=== PATIENT | female | born 1965 | race Caucasian/White ===

== ENCOUNTER → 2018-03-15 12:59 | Outpatient (REF) | payer SELFPAY | LOC: OM 12:59 | PROVIDERS: PCP Nurse Practitioner; Visit Provider Nurse Practitioner Family | DX: Z02.79 Encounter for issue of other medical certificate (principal) ==

== ENCOUNTER → 2018-03-24 11:50 | Outpatient (REF) | payer BC, SELFPAY ==
[2018-03-24 18:43] LABS: HCT 46.5 % (36.0-46.0); HGB 15.3 g/dL (12.0-15.5); Mean Corp. HGB Concentration 32.9 g/dL (32.0-36.0); Mean Corpuscular Hemoglobin 29.3 pg (27.0-33.0); Mean Corpuscular Volume 89.1 fL (80-95); Mean Platelet Volume 11.5 fL (8.0-11.0); Platelet Count 266 x1000/uL (130-400); RBC 5.22 m/cumm (4.00-5.20); White Blood Cell Count 8.16 k/cumm (4.4-10.8)
[2018-03-24 18:54] LABS: ALT 28 U/L (12-78); AST 25 U/L (15-37); Albumin 3.9 g/dL (3.4-5.0); Alkaline Phosphatase 114 U/L (46-116); Anion Gap 9.1 mmol/L (3-11); BUN 15 mg/dL (7-18); Bilirubin, Total 0.6 mg/dL (0.2-1.0); CO2 28.9 mmol/L (21.0-32.0); Calcium 9.3 mg/dL (8.5-10.1); Chloride 104 mmol/L (98-107); Glucose 88 mg/dL (70-100); Potassium 4.3 mmol/L (3.5-5.1); Sodium 142 mmol/L (136-145); TSH (W/Ref FT4) 1.39 uIU/mL (0.358-3.74); Total Protein 7.5 g/dL (6.4-8.2)
[2018-03-24 19:07] LABS: Cholesterol 186 mg/dL (50-200); HDL Cholesterol 67 mg/dL (40-60); LDL CHOLESTEROL 110 mg/dL (<100); Triglyceride 92 mg/dL (30-150)
== END ==
LOC: NCHCN 11:50
PROVIDERS: PCP Nurse Practitioner; Visit Provider Nurse Practitioner
DX: Z00.00 Encounter for general adult medical examination without abnormal findings (principal); Z13.29 Encounter for screening for other suspected endocrine disorder; Z13.0 Encounter for screening for diseases of the blood and blood-forming organs and certain disorders involving the immune mechanism; Z13.228 Encounter for screening for other metabolic disorders; Z13.220 Encounter for screening for lipoid disorders
CPT/HCPCS: 80053; 80061; 83721; 85027; 84443

== ENCOUNTER 2018-04-26 10:46 | Outpatient (REF) | payer BC, SELFPAY ==
--- NOTE | 2018-04-26 10:00 | PAPFT_PTH ---
PATIENT: Flakita Cardoso LOC: AP U#:[id number] AGE/SX: 52/F ROOM: RE04/26/[address]: Sulema Dominguez : 1965 BED: DIS: 04/26/2018 SPEC #: [id number] RECD: 04/26/18 12:58 STATUS: IRIS REEan #: [id number] ROD: 04/26/18 10:[address]: Sulema Dominguez DEPT: [facility] Cytology RECD BY: Nikki Phan ENTERED: 04/26/18 12:58 SP TYPE: PAPFT OTHR DR: Za Ricks Tissues: 1 - CX/ENDOCX FOR PAP SMEARS Procedures: PAP THIN PREP/UVM Screening HPV DNA PROBE Comments: [id number]
== END 2018-04-26 11:06 ==
LOC: LBN 10:46
PROVIDERS: PCP Nurse Practitioner; Visit Provider Obstetrics & Gynecology Gynecology
DX: Z12.4 Encounter for screening for malignant neoplasm of cervix (principal); Z11.51 Encounter for screening for human papillomavirus (HPV)
CPT/HCPCS: 88142; 87624

== ENCOUNTER 2018-05-05 01:06 | Outpatient (CLI) | payer BC, SELFPAY ==
--- NOTE | 2018-05-05 08:39 | DI.MAMMO_ITS ---
SYMPTOM/DIAGNOSIS: SCREENING, Z12.31 MAMMOGRAM: Mammograms were interpreted according to the usual protocol including computer analysis with CAD system, tomosynthesis and C view imaging. The breast tissue was of moderate radiodensity. There is no evidence of a mass. There are no suspicious calcifications and there has been no significant interval change when compared with prior images. SUMMARY: No evidence of malignancy, Category 1. Yearly screening mammography is recommended. Breast density category B. SA ASSESSMENT OF FINDINGS: Negative. Category 1. Patient will receive a letter notifying them of these results. BI-RADS category B. There are scattered areas of fibroglandular density.
== END 2018-05-05 01:26 ==
PROVIDERS: PCP Nurse Practitioner; Visit Provider Obstetrics & Gynecology Gynecology
DX: Z12.31 Encounter for screening mammogram for malignant neoplasm of breast (principal)
CPT/HCPCS: 77063; 77067

== ENCOUNTER 2018-05-19 11:51 | Day surgery (SDC) | payer BC, SELFPAY ==
[2018-05-19 12:12] VITALS: BP 131/86; PULSE 77; RESP 16; TEMP 36.4; O2SAT 97
[2018-05-19] MEDS: Lactated Ringers 1,000 ML 80 ML IV (12:30)
--- NOTE | 2018-05-19 13:12 | W.COLOREPORT ---
Date of service: 05/19/18 Colonoscopy Report Date of procedure: 05/19/18 Pre-op diagnosis general: screening Post-op diagnosis procedure note: same Procedure: Colonoscopy Surgeon: Suzie Altamirano Anesthesia proc note operative: MAC (Blane steve CRNA) Estimated blood loss (mL): 0 Pathology: none sent Complications: None Disposition: same day Indications: Mrs. Cardoso is a pleasant 53 year old female who was seen in the office for a screening colonoscopy. Risks, benefits and complications were reviewed. The patient wished to proceed. No guarantees were given or implied. Prep: Miralax/Dulcolax Procedure Start Time: 12:48 Procedure End Time: 13:11 Retraction Time: 15 minutes Findings: Normal colonoscopy Procedure Description: After informed concent was obtained the patient was taken back to the procedure room. Monitors were applied and a time out was done. The patients name, , allergies to medications, metal in her body, procedure to be done and fire risk were reviewed. The patient was then placed in a left decubitous position and sedated. Once sedated and comfortable a rectal exam was done. External exam was normal, internal exam revealed a normal sphincter tone and no palpable masses. The scope was then introduced and retroflexed. no internal hemorrhoids were identified. The scope was straightened and advanced to the cecum without difficulty. The TI and appendiceal orifice were identified and the prep was adequate. The scope was then slowly retracted over [address] back to the rectum and removed. There were no abnormalities. Follow up: Patient should follow up in 10 years unless she develops any GI issues like changes in bowel habits or bleeding, which would be indication to do another colonoscopy sooner.
--- NOTE | 2018-05-19 13:24 | PDOC.DSDIS_ITS ---
Discharge Plan Disposition Patient Disposition: HOME Condition: Good Discharge Details Reason For Visit: SCREENING Attending Provider: Suzie Altamirano Primary Care Provider: Za Ricks Home Meds and New Rx's Prescriptions: Continue citalopram 20 mg tablet 10 mg PO HS RF: 0 zberhei-kevwovanpwtyp-lboexkec [Excedrin Migraine] 250-250-65 mg Tablet 2 tab PO Q6H PRNRF: 0 Discontinued polyethylene glycol 3350 17 gram powder in packet 255 g PO DAILY Qty: 15 RF: 0 bisacodyl [Dulcolax (bisacodyl)] 5 mg tablet,delayed release (DR/EC) 5 mg PO ONCE Qty: 4 RF: 0 Discharge Instructions Instructions: Colonoscopy (DC) Additional Instructions: Findings: Normal large bowel Follow up: 10 years Please call if you develop: fevers >101.5 Nausea or vomiting Abdominal pain that is not transient 1. Because there will be medication in your system for the next 24 hours, you may feel a little sleepy. Your coordination will be affected. Therefore: a. Do not drive or operate dangerous equipment for 24 hours. b. Do not drink alcohol beverages for 24 hours (not even beer). c. Plan to go home and rest for the day. 2. Generally there are no restrictions on your activity after a day or so has gone by, but you may feel a bit fatigued for a few days. 3 After you arrive home you may have a light meal and return to a normal diet as you can tolerate it without feeling sick to your stomach. 4. After surgery, you may feel pain or discomfort. This should be only transient , but if it persists please contact your doctor. 5. If there are any questions regarding the findings of your procedure, please feel free to contact your doctor. 6. If you are unable to contact your doctor with a problem, contact the hospital at [phone]. 7. Continue all your regular medications unless directed otherwise. I understand the above instructions and have no questions. Signature of Patient or Responsible Adult Escort Date/Time Name of Responsible Adult Escort Signature of Nurse Date/Time Activity:: Activity as Tolerated Diet:: As Tolerated
== END 2018-05-19 14:10 | disposition home or self-care (01) ==
PROVIDERS: PCP Nurse Practitioner; Visit Provider Surgery
PROC: 0DJD8ZZ Inspection of Lower Intestinal Tract, Via Natural or Artificial Opening Endoscopic (ICD-10-PCS; CPT 45378; principal; 2018-05-19 13:00)
DX: Z12.11 Encounter for screening for malignant neoplasm of colon (principal)
CPT/HCPCS: 45378

== ENCOUNTER 2018-09-29 16:00 | Emergency (ER) | payer BC, SELFPAY ==
[2018-09-29 16:04] VITALS: BP 140/81; PULSE 81; RESP 16; TEMP 38.8; O2SAT 99
--- NOTE | 2018-09-29 16:17 | W.ED.GENAD ---
Discharge Plan Disposition Patient Disposition: HOME Condition: Stable Discharge Details Chief Complaint: RespSymp Clinical Impression: Influenza Primary Care Provider: Za Ricks ED Provider: Tj Conteh Home Meds and New Rx's Prescriptions: New benzonatate 200 mg capsule 200 mg PO TID PRN (Reason: cough) Qty: 30 RF: 0 Continued citalopram 20 mg tablet 10 mg PO HS RF: 0 Excedrin Migraine 250-250-65 mg Tablet 2 tab PO Q6H PRNRF: 0 Discharge Instructions Instructions: Influenza (ED) Additional Instructions: During illness stay well-hydrated and get plenty of rest. Continue to take xlbg-mtr-zbiqdmf cough and cold medications, Tylenol or Motrin for fever chills body aches, and use prescribed cough suppressant as directed. Feel free to return to the emergency department for any further concerns or for any significant worsening of your symptoms. Otherwise if not improving over the next week follow-up with your primary care provider for reassessment as needed. Referrals: Za Ricks [Primary Care Provider] - (As needed for reassessment) Discharge Data Discharge Date/Time-TO BE ENTERED AT DEPARTURE: 09/29/18 17:16 Medical Decision Making Patient presenting to the emergency department for flulike illness. Patient states that her symptoms started on Wednesday after being around her son that had symptoms that began 2 days before. Patient states headache, fever chills, body ache, cough, sore throat. Physical exam shows clear lung sounds, no signs of meningitis, mild anterior cervical lymphadenopathy otherwise unremarkable HEENT exam. Concern for influenza and patient states son was given antibiotics for this which I do not feel are necessary given concern more for viral etiology. Rapid influenza shows positive flu test. Patient was educated on viral illness and to stay well-hydrated, use cked-job-qhpzysu cough cold fever medication, and prescribed Tessalon Perles for cough suppressant. Return precautions were discussed. After discussion of diagnosis and plan of care patient has no further needs, questions, or concerns and states clear understanding to return to the emergency department for any worsening symptoms. HPI General Mode of arrival: ambulatory. Date/Time Provider Initiated Documentation: 09/29/18 16:00. Limitations to Documentation: no limitations. Information obtained by: RN notes reviewed. History of Present Illness 53 year old F presents to the emergency department with the chief complaint of flu like symptoms, described as mild, with intensity rated at 4. Quality is described as aching, and is localized to the head. Patient started experiencing this day(s) (4) and it has been constant. Patient did receive the following treatments prior to arrival, none Related Data Home Medications Medication Instructions Recorded Confirmed citalopram 20 mg tablet 10 mg PO HS tab 05/03/18 09/29/18 Excedrin Migraine 2 tab PO Q6H PRN 05/19/18 09/29/18 benzonatate 200 mg PO TID PRN #30 cap 09/29/18 Previous Rx's Medication Instructions Recorded benzonatate 200 mg PO TID PRN #30 cap 09/29/18 Allergies Allergy/AdvReac Type Severity Reaction Status Date / Time amoxicillin trihydrate AdvReac Severe uncontrolled Unverified 09/29/18 16:11 [From Augmentin] vomiting buspirone HCl [From BuSpar] AdvReac Severe n/v Unverified 09/29/18 16:11 codeine AdvReac Severe uncontrolled Unverified 09/29/18 16:11 vomiting latex AdvReac Severe skin Unverified 09/29/18 16:11 blisters/possibly from adhesive potassium clavulanate AdvReac n/v Unverified 09/29/18 16:11 [From Augmentin] General Stated Complaint: GenMedical MASOUD: 3 Review of Systems Constitutional Reports body ache(s), Reports chills, Reports fever(s), Reports headache(s) and Reports malaise Eyes Denies eye discharge ENT Reports as per HPI, Denies ear discharge, Denies otalgia, Reports headache(s), Reports nasal congestion, Reports nasal discharge, Denies neck pain, Denies sinus pain, Reports sinus pressure, Reports sore throat and Denies throat swelling Cardiovascular Denies chest pain and Denies dyspnea Respiratory Reports cough and Denies dyspnea Musculoskeletal Denies joint swelling and Denies neck pain Integumentary/Breasts Denies rash Neurologic Reports headache(s) Allergic/Immunologic Denies throat swelling PFSH Medical History Anxiety Depression Rosacea Sciatica Sleep apnea Surgical History section Cholecystectomy Dilation and curettage (08/26/12) Oophrectomy, Right Open Carpal Tunnel release (10/01/15) Family History Mother Hyperthyroidism Father Diabetes Heart disease Brother No problems noted. Brother No problems noted. NEPHEW Crohn's disease Other Personal history of malignant neoplasm Social History adopted: No household members: spouse and other details: SPOUSE AND SON marital status details: Heath number of children: 3 number of grandchildren: 1 current occupational status: employed current occupation: [employer] pets and animals: Yes pets and animals: dog(s) what type of physical activity do you participate in: walking frequency: daily duration: 30-45 minutes/day Smoking and Tabacco status: Never second hand exposure: No alcohol intake: current alcohol intake frequency: other details: RARELY substance use type: does not use Seatbelt use: always additional social history: Oldest son is Derrick 30 years of age she has a set of twins Female Reproductive History Menstrual Menopause type: natural History History 3 Para Hx # Term Pregnancies 2 Multiple births 2 Hx # Pregnancies Ectopic pregnancies AB induced Hx Number of Living Children AB spontaneous Exam Const General: cooperative, comfortable and no acute distress Orientation: alert and awake HENMT Head: normal to inspection, normocephalic and atraumatic Ears: hearing grossly normal bilaterally and TM's normal bilaterally General nose exam: external nose normal Face and sinus: normal facial exam, sinuses nontender and no erythema Mouth: oral mucosae normal, no drooling, no muffled voice and no trismus Throat: posterior oropharynx normal, tonsils normal and uvula midline Neck Neck: normal visual inspection, full ROM, no meningeal signs, trachea midline, supple and lymphadenopathy (Mild anterior cervical) Resp Effort & Inspection: normal respiratory effort and able to speak in complete sentences Auscultation: clear to auscultation bilaterally Cardio Rate: regular rate Rhythm: regular rhythm Heart Sounds: S1 normal, S2 normal, normal S1 and S2, no click, no gallops, no murmurs and no rubs Skin General skin exam: no rashes or lesions noted and dry skin (warm) Neuro General: alert, awake, oriented x3, gait normal and moves all extremities Cognition: normal cognition Speech: speech normal Course Vital Signs Temperature 38.8 C H 09/29/18 16:04 Pulse 81 09/29/18 16:04 Respiratory Rate 16 09/29/18 16:04 Blood Pressure 140/81 09/29/18 16:04 Pulse Oximetry 99 09/29/18 16:04 Temperature 38.8 C H 09/29/18 16:04 Temperature Source Temporal Artery Scan 09/29/18 16:04 Pulse 81 09/29/18 16:04 Respiratory Rate 16 09/29/18 16:04 Respiratory Effort Non-Labored 09/29/18 16:11 Respiratory Depth Normal 09/29/18 16:11 Blood Pressure 140/81 09/29/18 16:04 Blood Pressure Position Sitting 09/29/18 16:04 Pulse Oximetry 99 09/29/18 16:04 Oxygen Delivery Method Room Air 09/29/18 16:04 Oxygen Flow Rate 0 09/29/18 16:04 Pain Level 0 09/29/18 16:04 Lab/Test Results Lab/Test Results: 09/29/18 16:04 Nasopharynx Influenza Types A,B Antigen - Pending
[2018-09-29] MEDS: Acetaminophen 500 MG TAB 1000 MG PO (16:31)
[2018-09-29 17:15] VITALS: BP 140/81; PULSE 81; RESP 16; TEMP 38.8; O2SAT 99
== END 2018-09-29 17:16 | disposition home or self-care (01) ==
PROVIDERS: Emergency Provider Nurse Practitioner Family; PCP Nurse Practitioner
DX: J10.1 Influenza due to other identified influenza virus with other respiratory manifestations (principal); R51 Headache; R59.0 Localized enlarged lymph nodes
CPT/HCPCS: 87449; 99283

== ENCOUNTER 2019-05-22 14:56 | Outpatient (REF) | payer BC, SELFPAY ==
[2019-05-22 19:12] LABS: ALT 22 U/L (14-59); AST 19 U/L (15-37); Albumin 3.8 g/dL (3.4-5.0); Alkaline Phosphatase 110 U/L (46-116); BUN 12 mg/dL (7-18); Bilirubin, Total 0.6 mg/dL (0.2-1.0); CREATININE 0.84 mg/dL (0.55-1.02); Calculated LDL 93 mg/dL; Chloride 103 mmol/L (98-107); Cholesterol 169 mg/dL (50-200); Glucose 88 mg/dL (70-100); HDL Cholesterol 65 mg/dL (40-60); Potassium 3.9 mmol/L (3.5-5.1); Sodium 143 mmol/L (136-145); Total Protein 7.1 g/dL (6.4-8.2); Triglyceride 55 mg/dL (30-150)
[2019-05-22 19:18] LABS: Calcium 9.4 mg/dL (8.5-10.1)
== END 2019-05-22 15:16 ==
LOC: NCHCN 14:56
PROVIDERS: PCP Nurse Practitioner; Visit Provider Nurse Practitioner
DX: Z00.00 Encounter for general adult medical examination without abnormal findings (principal); Z13.228 Encounter for screening for other metabolic disorders; Z13.220 Encounter for screening for lipoid disorders
CPT/HCPCS: 80053; 80061

== ENCOUNTER 2020-01-31 01:42 | Outpatient (CLI) | payer BC, SELFPAY ==
--- NOTE | 2020-01-31 | DI.MAMMO_ITS ---
EXAM: MG MAMMO SCREENING CLINICAL HISTORY: SCREENING Z12.39 TECHNIQUE: Mammograms were interpreted according to the usual protocol including computer analysis w [employer] CAD system, tomosynthesis and C-view imaging. COMPARISON: FINDINGS: The breasts are heterogeneously dense. No dominant mass or clumped microcalcification is identified in either breast. The current examination is compared with previous examinations including April 2018 and there has been no gross interval change in appearance in comparison with the previous studi es. IMPRESSION: No specific evidence of malignancy at this time. Routine screening examinations are suggested at yea rly intervals in this age group according to the ACS ACR guidelines. BI-RADS Category 1 - Negative Breast Density - Category C - Heterogeneously dense
== END 2020-01-31 02:02 ==
PROVIDERS: PCP Nurse Practitioner; Visit Provider Obstetrics & Gynecology Gynecology
DX: Z12.31 Encounter for screening mammogram for malignant neoplasm of breast (principal)
CPT/HCPCS: 77063; 77067

== ENCOUNTER 2020-11-11 13:16 | Outpatient (REF) | payer OTHER, SELFPAY ==
[2020-11-11 15:41] LABS: Bilirubin Negative (Negative); Blood Small (Negative); Clarity Sl Cloudy (Clear); Glucose Negative (Negative); Ketones Negative (Negative); Leukocyte Esterase Large (Negative); Nitrite Negative (Negative); Urobilinogen 0.2 EU/dL (Up TO 0.2)
[2020-11-11 15:55] LABS: WBC 20-50 HPF (0-5)
[2020-11-11 15:56] LABS: Bacteria Moderate HPF (Negative); C & S Indicated? Yes; Casts Negative LPF (Negative); Crystals Negative HPF (Negative); Epithelial Cells Few HPF (Negative); Mucus Negative (Negative)
== END 2020-11-11 13:17 | disposition home or self-care (01) ==
LOC: NCHCN 13:16
PROVIDERS: PCP Nurse Practitioner; Visit Provider Nurse Practitioner
DX: N39.0 Urinary tract infection, site not specified (principal)
CPT/HCPCS: 81003; 81015; 87086

== ENCOUNTER 2021-01-23 08:54 | Outpatient (REF) | payer OTHER, SELFPAY ==
[2021-01-23 19:26] LABS: Bilirubin Negative (Negative); Blood Moderate (Negative); Clarity Clear (Clear); Glucose Negative (Negative); Ketones Negative (Negative); Leukocyte Esterase Moderate (Negative); Nitrite Negative (Negative); Specific Gravity 1.025 (1.005-1.025)
[2021-01-23 19:35] LABS: Bacteria Rare HPF (Negative); C & S Indicated? C&S Done As Ordered; Casts Negative LPF (Negative); Crystals Negative HPF (Negative); Epithelial Cells Rare HPF (Negative); Mucus Negative (Negative); Other Cells Rare Renal (Negative); WBC 20-50 HPF (0-5)
== END 2021-01-23 08:55 | disposition home or self-care (01) ==
LOC: NCHCN 08:54
PROVIDERS: PCP Nurse Practitioner; Visit Provider Family Medicine
DX: R30.0 Dysuria (principal)
CPT/HCPCS: 81003; 81015; 87086

== ENCOUNTER 2022-06-12 11:59 | Outpatient (REF) | payer OTHER, SELFPAY | END 2022-06-12 12:00 | disposition home or self-care (01) | LOC: LBN 11:59 | PROVIDERS: PCP Nurse Practitioner Family; Visit Provider Nurse Practitioner Family | DX: J02.9 Acute pharyngitis, unspecified (principal) | CPT/HCPCS: 87077; 87070; 87186 ==

== ENCOUNTER 2022-11-03 02:26 | Outpatient (CLI) | payer BC, SELFPAY ==
[2022-11-03 11:03] LABS: BUN 18 mg/dL (7-18); Calcium 8.6 mg/dL (8.5-10.1); Calculated LDL 66 mg/dL (<100); Chloride 104 mmol/L (98-107); Cholesterol 135 mg/dL (<200); Glucose 104 mg/dL (74-106); HDL Cholesterol 53 mg/dL (40-60); Potassium 3.8 mmol/L (3.5-5.1); Sodium 140 mmol/L (136-145); TSH (W/Ref FT4) 2.42 uIU/mL (0.36-3.74); Triglyceride 82 mg/dL (<150)
[2022-11-03 11:20] LABS: Hemoglobin A1C 5.5 % (<5.7)
== END 2022-11-03 02:27 | disposition home or self-care (01) ==
PROVIDERS: PCP Nurse Practitioner Family; Visit Provider Nurse Practitioner Family
DX: E78.5 Hyperlipidemia, unspecified (principal)
CPT/HCPCS: 36415; 80048; 80061; 83036; 84443

== ENCOUNTER 2022-11-30 00:47 | Outpatient (CLI) | payer BC, SELFPAY ==
--- NOTE | 2022-11-30 07:43 | DI.MAMMO_ITS ---
Exam(s) MAMMO SCREENING EXAM: MAMMO SCREENING CLINICAL HISTORY: screening,z12.39 TECHNIQUE: Bilateral full field digital CC and MLO mammographic images were obtained with 3D tomosyn thesis and utilizing computer aided detection (CAD). COMPARISON: Available for comparison. FINDINGS: Masses/Architectural Distortion: The well-circumscribed nodule in the outer right breast is unchanged . No suspicious nodules are seen. No areas of architectural distortion are present. Microcalcifications: No suspicious pleomorphic-type are seen. Skin Thickening/Nipple Retraction: None. IMPRESSION: 1. No significant interval change with no specific features of malignancy noted. 2. Unless there is more urgent need, screening mammography is recommended, as per [place] [employer] guidelines. BI-RADS Category 2 - Benign Findings Breast Density - Category C - Heterogeneously dense Breast density category C or D implies that the patient has dense breast tissue. Dense breast tissue is very common and is not abnormal but dense breast tissue can make it harder to find cancer on a ma mmogram. Also, dense breast tissue may increase their breast cancer risk. This information about the result of the mammogram report was provided to the patient to raise their awareness. Use this report when you speak with the patient about their risks for breast cancer, which includes their family hist ory. At that time, you may recommend for more screening tests (Ultrasound or MRI) as they might be us eful based on their risk. A negative radiographic report should not delay biopsy if a dominant or clinically suspicious mass is present. Up to ten percent of cancers are not identified on mammography. A negative report may reinforce clinical impression. Adenosis and dense breasts may obscure an underlying neoplasm. False positive reports average 6 to 10%. Patient will receive a letter notifying them of these results.
== END 2022-11-30 01:07 ==
LOC: DI 00:47
PROVIDERS: PCP Nurse Practitioner Family; Visit Provider Nurse Practitioner Family
DX: Z12.31 Encounter for screening mammogram for malignant neoplasm of breast (principal)
CPT/HCPCS: 77063; 77067

== ENCOUNTER 2024-04-14 15:31 | Outpatient (REF) | payer SELFPAY ==
[2024-04-14 12:28] LABS: Bilirubin Negative (Negative); Blood Moderate (Negative); Clarity Clear (Clear); Glucose Negative (Negative); Ketones Negative (Negative); Leukocyte Esterase Small (Negative); Nitrite Negative (Negative); Urobilinogen 0.2 mg/dL (Up to 0.2)
[2024-04-14 12:51] LABS: Bacteria Few HPF (Negative); Casts 0-2 Hyaline LPF (Negative); Crystals Negative HPF (Negative)
[2024-04-14 12:52] LABS: Mucus Trace (Negative)
[2024-04-14 12:53] LABS: C & S Indicated? Yes; Epithelial Cells Few HPF (Negative)
== END 2024-04-14 15:32 | disposition home or self-care (01) ==
LOC: LBN 15:31
PROVIDERS: PCP Nurse Practitioner Family; Visit Provider Nurse Practitioner Family
DX: R82.81 Pyuria (principal); R82.89 Other abnormal findings on cytological and histological examination of urine
CPT/HCPCS: 81003; 81015; 87086

== ENCOUNTER 2025-05-01 12:26 | Outpatient (REF) | payer BC, SELFPAY | END 2025-05-01 12:27 | disposition home or self-care (01) | LOC: LBN 12:26 | PROVIDERS: PCP Nurse Practitioner Family; Visit Provider Obstetrics & Gynecology | DX: Z12.4 Encounter for screening for malignant neoplasm of cervix (principal) | CPT/HCPCS: 88142; 87624 ==

== ENCOUNTER 2025-05-07 04:13 | Outpatient (CLI) | payer BC, SELFPAY ==
[2025-05-07 14:29] LABS: Abs Immature Grans 0.02 10^3/uL (0.0-0.06); HCT 43.9 % (36.0-46.0); HGB 14.7 g/dL (11.2-15.7); Immature Grans % 0.2 %; MCH 29.9 pg (27.0-33.0); MCHC 33.5 % (32.0-36.0); MCV 89 fL (80-95); MPV 11.0 fL (8.0-11.0); Platelet Count 302 10^3/uL (130-400); RBC 4.92 10^6/uL (3.93-5.22); RDW 12.4 % (11.7-14.6); RDW-SD 40.4 fL; WBC 9.45 10^3/uL (4.4-10.8)
[2025-05-07 15:24] LABS: ALT 14 U/L (14-59); AST 18 U/L (15-37); Albumin 3.5 g/dL (3.4-5.0); Alkaline Phosphatase 110 U/L (46-116); Anion Gap 7.3 mmol/L (3-11); BUN 16 mg/dL (7-18); Bilirubin, Total 0.3 mg/dL (0.2-1.0); CO2 30.7 mmol/L (21.0-32.0); Calcium 8.9 mg/dL (8.5-10.1); Calculated LDL 91 mg/dL (<100); Chloride 104 mmol/L (98-107); Cholesterol 166 mg/dL (<200); Estimated GFR 63.70 (mL/min/1.73m2); Glucose 124 mg/dL (74-106); HDL Cholesterol 51 mg/dL (>or=50); Potassium 3.6 mmol/L (3.5-5.1); Sodium 142 mmol/L (136-145); TSH (W/Ref FT4) 1.95 uIU/mL (0.36-3.74); Total Protein 7.1 g/dL (6.4-8.2); Triglyceride 122 mg/dL (<150)
[2025-05-07 15:30] LABS: Hemoglobin A1C 5.3 % (<5.7)
[2025-05-07 23:24] LABS: HIV-1/2 Ag & Ab Screen Negative (Negative)
[2025-05-07 23:29] LABS: HBs Antibody, Quant <3.1 mIU/mL (See Note); Hepatitis B Surface Antigen Negative (Negative)
[2025-05-08 12:12] LABS: Hepatitis C Ab w Rflx HCV PCR Negative (Negative)
== END 2025-05-07 04:14 | disposition home or self-care (01) ==
LOC: LOS 04:13
PROVIDERS: PCP Nurse Practitioner Family; Visit Provider Nurse Practitioner Family
DX: Z11.59 Encounter for screening for other viral diseases (principal); Z00.00 Encounter for general adult medical examination without abnormal findings; R31.29 Other microscopic hematuria; G47.33 Obstructive sleep apnea (adult) (pediatric); Z11.4 Encounter for screening for human immunodeficiency virus [HIV]
CPT/HCPCS: 36415; 80053; 80061; 86704; 86706; 86803; 87340; 87389; 83036; 84443; 85025

== ENCOUNTER 2025-05-16 02:09 | Outpatient (CLI) | payer BC, SELFPAY ==
--- NOTE | 2025-05-16 11:32 | DI.MAMMO_ITS ---
Exam(s) MAMMO SCREENING EXAM: MAMMO SCREENING CLINICAL HISTORY: screening,z12.39. TECHNIQUE: Bilateral full field digital CC and MLO mammographic images were obtained with 3D tomosynthesis and utilizing computer aided detection (CAD). COMPARISON: Prior mammograms were reviewed. FINDINGS: Benign-appearing round nodular density posteriorly in the right breast on the MLO view is unchanged from 2016. No new right breast findings In the left breast there is a medially located skin mole again noted more centrally there is a 4 mm nodule located 3 cm in from the nipple on the MLO view, more evident than on previous studies. Spot compression view ultrasound recommended. No new malignant-appearing microcalcification groups in either breast. There is no significant architectural distortion nor skin thickening-retraction. IMPRESSION: 1. There is a 4 mm nodule in left breast located 3 cm in from the nipple on the MLO view. Spot compression view and left breast ultrasound recommended. 2. Findings in the opposite-right breast are benign-appearing and stable. BI-RADS Category 0 - Incomplete: Need additional imaging evaluation Breast Density - Category B - There are scattered areas of fibroglandular density. Breast density Category C or D implies that the patient has dense breast tissue. Dense breast tissue can make it harder to find cancer on a mammogram. Dense breast tissue is also associated with an increased risk of breast cancer. This information about the result of the mammogram report was provided to the patient to raise their awareness. Use this report when you speak with the patient about their risks for breast cancer, which includes their family history. At that time, you may recommend additional screening tests (Ultrasound or MRI) as these tests may add significant information. A negative radiographic report should not delay biopsy if a dominant or clinically suspicious mass is present. Up to ten percent of cancers are not identified on mammography. A negative report may reinforce clinical impression. Adenosis and dense breasts may obscure an underlying neoplasm. False positive reports average 6 to 10%. Patient will receive a letter notifying them of these results.
== END 2025-05-16 02:29 ==
LOC: DI 02:09
PROVIDERS: PCP Nurse Practitioner Family; Visit Provider Nurse Practitioner Family
DX: Z12.31 Encounter for screening mammogram for malignant neoplasm of breast (principal)
CPT/HCPCS: 77063; 77067

== ENCOUNTER 2025-05-25 04:53 | Outpatient (CLI) | payer BC, SELFPAY ==
--- NOTE | 2025-05-25 | DI.US_ITS ---
Exam(s) MG MAMMO SCREEN CALL BACK UNI US BREAST LT LIMITED EXAM: MG MAMMO SCREEN CALL BACK UNI CLINICAL HISTORY: 4MM NODULE LT BREAST 3CM FROM NIPPLE R92.8 ABNL MAMMO. TECHNIQUE: Craniocaudal and mediolateral oblique spot compression digital Mammography views of the leftbreast with Tomosynthesis and left breast ultrasound. COMPARISON: MG MG MAMMO SCREENING from 05/16/2025 US US BREAST LT LIMITED from 05/25/2025 and exams back to 2016 FINDINGS: Mammography/Tomosynthesis: Masses: Small put persistent circumscribed nodule in the central breast. Architectural Distortion: None seen. Microcalcifictions: No suspicious pleomorphic-type are seen. Skin Thickening/Nipple Retraction: None. Left breast US: Echotexture: Normal appearance of the glandular tissue. Shadowing: No suspicious foci. Cyst: 4 millimeter cyst in the subareolar region corresponding to the mammographic nodularity. Solid lesions: None seen. Ductal dilation: None. IMPRESSION: 1. No evidence of malignancy is noted. 4 millimeter cyst. 2. Unless there is more urgent need, follow-up screening mammography is recommended, as per [employer] guidelines. 3. The findings were discussed with the patient on the date of the examination. BI-RADS Category 2 - Benign Findings Breast Density - Category B - There are scattered areas of fibroglandular density. Breast density Category C or D implies that the patient has dense breast tissue. Dense breast tissue can make it harder to find cancer on a mammogram. Dense breast tissue is also associated with an increased risk of breast cancer. This information about the result of the mammogram report was provided to the patient to raise their awareness. Use this report when you speak with the patient about their risks for breast cancer, which includes their family history. At that time, you may recommend additional screening tests (Ultrasound or MRI) as these tests may add significant information. A negative radiographic report should not delay biopsy if a dominant or clinically suspicious mass is present. Up to ten percent of cancers are not identified on mammography. A negative report may reinforce clinical impression. Adenosis and dense breasts may obscure an underlying neoplasm. False positive reports average 6 to 10%. Patient will receive a letter notifying them of these results.
== END 2025-05-25 05:13 ==
LOC: DI 04:53
PROVIDERS: PCP Nurse Practitioner Family; Visit Provider Nurse Practitioner Family
DX: Z12.31 Encounter for screening mammogram for malignant neoplasm of breast (principal); R92.8 Other abnormal and inconclusive findings on diagnostic imaging of breast
CPT/HCPCS: 76642; 77063; 77067